=== PATIENT | male | born 2000 | race Caucasian/White ===

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

== ENCOUNTER 2022-03-28 00:31 | Emergency (ER) | payer OTHER ==
[2022-03-28 00:45] VITALS: BP 119/81; PULSE 82; RESP 20; TEMP 98.6; BMI 29.2
[2022-03-28] MEDS ORDERED: IBUPROFEN 400 MG TABLET (FP) PO ONE (01:08)
== END 2022-03-28 02:21 | disposition home or self-care (01) ==
LOC: JER 00:31
DX: R07.9 Chest pain, unspecified (principal)
CPT/HCPCS: 71046-TC-FY; 93005; 93010; 99284-25

== ENCOUNTER 2023-05-24 10:25 | Emergency (ER) | payer OTHER ==
[2023-05-24 10:31] VITALS: BP 130/68; PULSE 84; RESP 20; TEMP 97.6; BMI 25.8
[2023-05-24] MEDS ORDERED: IBUPROFEN 400 MG TABLET (FP) PO ONE (11:06)
[2023-05-24] MEDS ORDERED: LIDOCAINE 4% PATCH TP ONE (11:06)
[2023-05-24] MEDS: IBUPROFEN 400 MG TABLET (FP) PO ONE (11:09)
[2023-05-24] MEDS: LIDOCAINE 4% PATCH TP ONE (11:09)
[2023-05-24] MEDS ORDERED: LIDOCAINE PATCH REMOVAL MC SCH (22:00)
== END 2023-05-24 11:58 | disposition home or self-care (01) ==
LOC: JERFT 10:25
DX: M54.6 Pain in thoracic spine (principal); X50.0XXA Overexertion from strenuous movement or load, initial encounter
CPT/HCPCS: 71046-TC-FY; 99283-25